=== PATIENT | female | born 1940 | race Caucasian/White ===

== ENCOUNTER 2022-12-08 10:15 | Day surgery (SDC) | payer MEDICARE ==
[~2022-12-08] VITALS: Ht 154.9 cm; Wt 59.0 kg
[~2022-12-08 10:15] MED LIST: CARI350 PO; EUTHYROX100 MC1 PO; MELO7.5 PO; METO25ER PO; RXSULTRIDS PO; XARELTO15 M1 PO
[2022-12-08 10:45] VITALS: BP 135/99
--- NOTE | 2022-12-08 11:22 | NUR ---
12/08/[address] notified pt is in afib HR 125. DR STEVE CANCELS THE PROCEDURE AND INSTRUCTS PT TO FOLLOW UP WITH CARDIOLOGY OR PRIMARY CARE PROVIDER AND THEN ONCE HR IS UNDER CONTROL PT IS TO RESCHEDULE WITH DR STEVE OFFICE.
== END 2022-12-08 11:20 | disposition home or self-care (01) ==
LOC: ORSCSDS 10:15
DX: G56.01 Carpal tunnel syndrome, right upper limb (principal); Z53.9 Procedure and treatment not carried out, unspecified reason
CPT/HCPCS: J7120

== ENCOUNTER 2024-04-28 17:27 | Emergency (ER) | payer MEDICARE ==
[~2024-04-28] VITALS: Ht 154.9 cm; Wt 56.7 kg
[2024-04-28] MEDS ORDERED: Lactated Ringer's 500 ML IV ONE (17:50)
[2024-04-28 18:08] LABS: BASOPHILS ABSOLUTE AUTO 0.05 K/mm3 (0.00-0.23); BASOPHILS PERCENT AUTO 1 % (0-2); EOSINOPHILS ABSOLUTE AUTO 0.13 K/mm3 (0.00-0.68); EOSINOPHILS PERCENT AUTO 1 % (0-6); Hematocrit 39.9 % (33.0-51.0); Hemoglobin 13.6 g/dL (11.5-16.0); IMMATURE GRAN ABSOLUTE AUTO 0.03 K/mm3 (0.00-0.10); IMMATURE GRAN PERCENT AUTO 0 % (0-1); LYMPHOCYTES ABSOLUTE AUTO 2.33 K/mm3 (0.84-5.20); LYMPHOCYTES PERCENT AUTO 23 % (21-46); MONOCYTES ABSOLUTE AUTO 0.52 K/mm3 (0.16-1.47); MONOCYTES PERCENT AUTO 5 % (4-13); Mean Corpuscular HGB 34.8 pg (26.0-34.0); Mean Corpuscular HGB Conc 34.1 g/dL (31.5-36.5); Mean Corpuscular Volume 102 fL (80-100); NEUTROPHILS ABSOLUTE AUTO 6.91 K/mm3 (1.96-9.15); NEUTROPHILS PERCENT AUTO 69 % (41-73); Platelet Count 169 K/mm3 (150-400); RDW Coefficient Variation 12.9 % (11.7-14.2); RDW Standard Deviation 48.8 fL (35.1-46.3); Red Blood Cell Count 3.91 M/mm3 (3.80-5.20); White Blood Cell Count 9.97 K/mm3 (4.00-11.30)
[2024-04-28 18:25] LABS: International Normalized Ratio 1.03
[2024-04-28 18:33] LABS: Albumin, Blood 3.1 g/dL (3.4-5.0); Bilirubin, Total 0.9 mg/dL (0.1-1.0); Bun/Creatinine Ratio 36.9 (12.0-20.0); Calcium, Blood 8.2 mg/dL (8.5-10.1); Creatinine, Blood 0.73 mg/dL (0.40-1.00); Globulin, Blood 3.1 g/dL (2.2-4.0); Total Protein, Blood 6.2 g/dL (6.4-8.2)
[2024-04-28] MEDS ORDERED: NS 1,000 ML IV SCH (21:05)
[2024-04-28 21:41] LABS: Hematocrit 33.6 % (33.0-51.0); Hemoglobin 11.7 g/dL (11.5-16.0)
[2024-04-28 22:00] VITALS: BP 134/85
== END 2024-04-28 23:23 | disposition home or self-care (01) ==
LOC: ER 17:27
PROVIDERS: Student in an Organized Health Care Education/Training Program
DX: R04.0 Epistaxis (principal); I48.91 Unspecified atrial fibrillation; Z88.8 Allergy status to other drugs, medicaments and biological substances; Z88.6 Allergy status to analgesic agent; Z88.0 Allergy status to penicillin; Z88.2 Allergy status to sulfonamides; Z79.899 Other long term (current) drug therapy; E03.9 Hypothyroidism, unspecified
CPT/HCPCS: 30903; 80053; 85014; 85018; 85025; 85610; 85730; 86850; 86900; 86901; 99284-25; J7030; J7120

== ENCOUNTER 2024-06-22 17:39 | Inpatient (IN) | payer MEDICARE ==
[~2024-06-22] VITALS: Ht 154.9 cm; Wt 59.3 kg
[2024-06-22] MEDS ORDERED: NS 1,000 ML IV SCH (18:10)
[2024-06-22 18:29] LABS: BASOPHILS ABSOLUTE AUTO 0.04 K/mm3 (0.00-0.23); BASOPHILS PERCENT AUTO 0 % (0-2); EOSINOPHILS ABSOLUTE AUTO 0.01 K/mm3 (0.00-0.68); EOSINOPHILS PERCENT AUTO 0 % (0-6); Hematocrit 40.5 % (33.0-51.0); Hemoglobin 13.4 g/dL (11.5-16.0); IMMATURE GRAN ABSOLUTE AUTO 0.09 K/mm3 (0.00-0.10); IMMATURE GRAN PERCENT AUTO 1 % (0-1); LYMPHOCYTES ABSOLUTE AUTO 1.03 K/mm3 (0.84-5.20); LYMPHOCYTES PERCENT AUTO 6 % (21-46); MONOCYTES ABSOLUTE AUTO 1.13 K/mm3 (0.16-1.47); MONOCYTES PERCENT AUTO 7 % (4-13); Mean Corpuscular HGB 31.9 pg (26.0-34.0); Mean Corpuscular HGB Conc 33.1 g/dL (31.5-36.5); Mean Corpuscular Volume 96 fL (80-100); Mean Platelet Volume 10.2 fL (9.1-12.4); NEUTROPHILS ABSOLUTE AUTO 14.43 K/mm3 (1.96-9.15); NEUTROPHILS PERCENT AUTO 86 % (41-73); Platelet Count 299 K/mm3 (150-400); RDW Coefficient Variation 13.9 % (11.7-14.2); RDW Standard Deviation 49.1 fL (35.1-46.3); White Blood Cell Count 16.73 K/mm3 (4.00-11.30)
[2024-06-22 18:46] LABS: Free Thyroxine 1.69 ng/dL (0.70-1.60); Magnesium, Blood 1.7 mg/dL (1.6-2.4)
[2024-06-22 18:49] LABS: Albumin/Globulin Ratio 0.6 (0.8-1.8); Bilirubin, Total 0.9 mg/dL (0.1-1.0); Bun/Creatinine Ratio 41.5 (12.0-20.0); Calcium, Blood 8.7 mg/dL (8.5-10.1); Creatinine, Blood 0.58 mg/dL (0.40-1.00); Globulin, Blood 4.8 g/dL (2.2-4.0); Potassium, Blood 3.8 mmol/L (3.5-5.5); Thyroid Stimulating Hormone 0.64 uIU/mL (0.360-4.800); Total Protein, Blood 7.8 g/dL (6.4-8.2)
[2024-06-22] MEDS ORDERED: Morphine Sulfate 4 MG/1 ML Injection IV ONE (19:25)
[2024-06-22] MEDS ORDERED: Metoprolol Tartrate 1 MG/ML 5 ML VIAL IV PRN (19:40)
[2024-06-22] MEDS ORDERED: Ondansetron HCl 2 MG / ML 2ML Vial IV ONE (19:40)
[2024-06-22] MEDS ORDERED: FLU VACC TS2024-25(6MOS UP)/PF 45 MCG/0.5 ML SYRINGE IM SCH (21:05)
[2024-06-22] MEDS ORDERED: Acetaminophen 325 MG TABLET PO PRN (21:50)
[2024-06-22] MEDS ORDERED: OxyCODONE HCL 5 MG TAB PO PRN (21:50)
[2024-06-22 22:17] LABS: Anti-Xa UFH, PHA Monitoring <0.10 IU/mL; International Normalized Ratio 1.11; Prothrombin Time Results 11.8 Sec (9.7-11.5)
[2024-06-22 22:52] LABS: Source, Urine Clean Catch
[2024-06-22 22:57] LABS: Appearance, Urine Hazy (Clear); Bilirubin, Urine Neg (Neg); Blood, Urine 5+ (Neg); Color, Urine Yellow (P-Yellow); Glucose Qualitative, Urine Neg (Neg); Ketones, Urine 3+ (Neg); Leukocyte Esterase, Urine 2+ (Neg); Nitrite, Urine Neg (Neg); Protein, Urine 4+ (Neg); Specific Gravity, Urine 1.025 (1.003-1.022); Urobilinogen, Urine NORM (Normal)
[2024-06-22 23:49] LABS: Amorphous Light (0-Heavy); Bacteria Many /hpf; Red Blood Cells, Urine 0-2 /hpf (0-2); Squamous Epithelial Cells Many /hpf (Few); Transitional Epithelial Cells Few /hpf (0-Rare); Yeast/Fungi Urine Few /hpf
[2024-06-23] VITALS (25 sets, daily range): BP systolic 84–155; BP diastolic 61–110
[2024-06-23] MEDS ORDERED: Heparin Sodium,Porcine/0.5 NS 500 ML IV SCH (00:20)
[2024-06-23] MEDS ORDERED: Diltiazem HCl 5 MG / ML 5ML Vial IV ONE (00:25)
[2024-06-23] MEDS ORDERED: Levothyroxine Sodium 0.088 MG Tab PO SCH (06:00)
[2024-06-23] MEDS ORDERED: CefTRIAXone Sodium 1,000 MG in NS 100 ML IV SCH (06:42)
[2024-06-23 07:09] LABS: BASOPHILS ABSOLUTE AUTO 0.05 K/mm3 (0.00-0.23); BASOPHILS PERCENT AUTO 0 % (0-2); EOSINOPHILS ABSOLUTE AUTO 0.04 K/mm3 (0.00-0.68); EOSINOPHILS PERCENT AUTO 0 % (0-6); Hematocrit 37.2 % (33.0-51.0); Hemoglobin 11.9 g/dL (11.5-16.0); IMMATURE GRAN ABSOLUTE AUTO 0.05 K/mm3 (0.00-0.10); IMMATURE GRAN PERCENT AUTO 0 % (0-1); LYMPHOCYTES ABSOLUTE AUTO 1.36 K/mm3 (0.84-5.20); LYMPHOCYTES PERCENT AUTO 9 % (21-46); MONOCYTES ABSOLUTE AUTO 1.25 K/mm3 (0.16-1.47); MONOCYTES PERCENT AUTO 9 % (4-13); Mean Corpuscular HGB 32.3 pg (26.0-34.0); NEUTROPHILS PERCENT AUTO 81 % (41-73); Platelet Count 275 K/mm3 (150-400); RDW Coefficient Variation 14.1 % (11.7-14.2); RDW Standard Deviation 52.8 fL (35.1-46.3); Red Blood Cell Count 3.68 M/mm3 (3.80-5.20); White Blood Cell Count 14.55 K/mm3 (4.00-11.30)
[2024-06-23 07:23] LABS: Mean Corpuscular Volume 101 fL (80-100)
[2024-06-23 07:30] LABS: Bun/Creatinine Ratio 33.7 (12.0-20.0); Calcium, Blood 7.9 mg/dL (8.5-10.1); Creatinine, Blood 0.65 mg/dL (0.40-1.00); Potassium, Blood 3.7 mmol/L (3.5-5.5)
[2024-06-23] MEDS ORDERED: Heparin Sodium 5000 Units/ML 1ML MDV IV ONE (07:55)
[2024-06-23] MEDS ORDERED: Metoprolol Tartrate 25 MG Tab PO SCH ×3 (09:00→21:00)
[2024-06-23] MEDS ORDERED: Lactated Ringer's 1,000 ML IV ONE (14:56)
[2024-06-23] MEDS ORDERED: Bupivacaine 0.5% HCl 5 MG/ML 30MLVIAL ONE (15:16)
--- NOTE | 2024-06-23 15:22 | NUR ---
PT ARRIVES TO PACU VIA BED FOR PREOP CARE AT 1515. ALERT & PLEASANT. DENIES PAIN/NAUSEA. AFEBRILE/AFIB PT BASELINE. LR AT TKO. SURGICAL PACK COMPLETE. SURGICAL HAT/PAS SLEEVE TO RLE/BP CUFF PLACED. WARM BLANKETS PLACED. RESTING QUIETLY. NO COMPLAINTS.
[2024-06-23] MEDS ORDERED: propofoL 20 ML IV ONE (15:38)
[2024-06-23] MEDS ORDERED: FentaNYL Citrate 50 MCG/ML 2 ML Injection ONE (15:39)
--- NOTE | 2024-06-23 16:22 | NUR ---
PT TO OR 3 VIA BED AT 1623 IN STABLE CONDITION.
[2024-06-23] MEDS ORDERED: CeFAZolin Sodium 1000 mg Vial ONE (16:34)
[2024-06-23] MEDS ORDERED: Ondansetron HCl 2 MG / ML 2ML Vial ONE (16:50)
[2024-06-23] MEDS ORDERED: EpiNEPhrine 1 MG/1 ML 1ML Vial ONE (16:50)
--- NOTE | 2024-06-23 17:18 | NUR ---
PT REMAINS IN OPERATING ROOM AT THIS TIME. PT WAS A/O x2-3 WHEN SHE LEFT FOR THE OR. SHE DENIES PAIN. VSS. HR 90-110s. SHE APPEAR MORE ORIENTED WHEN FMAILY ARRRIVED TO THE ROOM THIS AM. HEPARIN WAS STOPPED THIS AM PER DR BANKS'S ORDER. PT HAS BEEN REPOSITIONED T/O THE DAY.
[2024-06-23] MEDS ORDERED: Metoprolol Tartrate 5 ML IV ONE (17:53)
--- NOTE | 2024-06-23 18:47 | NUR ---
PT RETURNS FROM OR, SHE HAS A NAIL TO LEFT FEMUR. [address] PT DENIES PAIN TO LEFT FEMUR, REPORTS CHRONIC PAIN TO LOWER BACK BUT STATES THAT SHE DOES NOT REQUIRE ANYTHING FOR PAIN AT THIS TIME
[2024-06-24] VITALS (21 sets, daily range): BP systolic 85–178; BP diastolic 57–121
[2024-06-24] MEDS ORDERED: CeFAZolin Sodium 2,000 MG in NS 100 ML IV SCH
[2024-06-24 04:44] LABS: BASOPHILS ABSOLUTE AUTO 0.06 K/mm3 (0.00-0.23); BASOPHILS PERCENT AUTO 1 % (0-2); EOSINOPHILS PERCENT AUTO 1 % (0-6); Hematocrit 33.4 % (33.0-51.0); Hemoglobin 10.7 g/dL (11.5-16.0); IMMATURE GRAN ABSOLUTE AUTO 0.05 K/mm3 (0.00-0.10); IMMATURE GRAN PERCENT AUTO 0 % (0-1); LYMPHOCYTES ABSOLUTE AUTO 1.67 K/mm3 (0.84-5.20); LYMPHOCYTES PERCENT AUTO 14 % (21-46); MONOCYTES ABSOLUTE AUTO 1.12 K/mm3 (0.16-1.47); MONOCYTES PERCENT AUTO 10 % (4-13); Mean Corpuscular Volume 100 fL (80-100); Mean Platelet Volume 10.4 fL (9.1-12.4); NEUTROPHILS ABSOLUTE AUTO 8.77 K/mm3 (1.96-9.15); NEUTROPHILS PERCENT AUTO 75 % (41-73); Platelet Count 258 K/mm3 (150-400); RDW Coefficient Variation 14.2 % (11.7-14.2); RDW Standard Deviation 52.2 fL (35.1-46.3); Red Blood Cell Count 3.34 M/mm3 (3.80-5.20); White Blood Cell Count 11.77 K/mm3 (4.00-11.30)
[2024-06-24 05:12] LABS: Bun/Creatinine Ratio 33.1 (12.0-20.0); Calcium, Blood 8.1 mg/dL (8.5-10.1); Creatinine, Blood 0.7 mg/dL (0.40-1.00); Potassium, Blood 3.4 mmol/L (3.5-5.5)
--- NOTE | 2024-06-24 06:50 | NUR ---
SHIFT SUMMARY NEURO: PT A/OX4, FOLLOWS CONVERSATION EASILY. REPORTS NOT REMEMBERING THE PREVIOUS EVENING EVENTS. NO CONFUSION SEEN BY THIS RN OTHER THAN SOME FORGETFULNESS. SENSATION IN TACT IN ALL EXTREMETIES. CARDIAC: PT IN AFIB- BASELINE. POST OP VITALS COMPLETED. PULSES PRESENT. LUNGS: PT IS NOW ON RA. PT PULLED ONLY 500ML ON THE INCENTIVE SPIROMETER. PT AN EDUCATED ON USE AND FAMILY ENCOURAGED TO REMIND PATIENT WHEN AWAKE. SKIN: SURGICAL AQUACEL DRESSINGS IN PLACE, SCANT SHADOWING ON BOTTOM DRESSING. ICE PACKS APPLIED. POST OP CHG BATH COMPLETED.BRUISING AND MILD SWELLING STARTING.
[2024-06-24] MEDS ORDERED: Potassium Chloride 20 MEQ TabCR PO ONE (08:00)
[2024-06-24] MEDS ORDERED: Naloxone HCl 0.4MG / ML 1ML Vial ONE ×2 (10:20→10:27)
[2024-06-24] MEDS ORDERED: Lactated Ringer's 1,000 ML IV ONE (10:21)
[2024-06-24] MEDS ORDERED: Naloxone HCl 0.4MG / ML 1ML Vial IV ONE ×2 (10:30→10:35)
[2024-06-24] MEDS ORDERED: Lactated Ringer's 500 ML IV SCH (10:30)
--- NOTE | 2024-06-24 13:22 | NUR ---
AM NOTE: UPON SHIFT START PATIENT ALERT AND ORIENTED X3. POOR HISTORIAN AND CALLS HERSELF FORGETFUL. JOKING WITH STAFF AND TELLING ME DETAILS ABOUT HERSELF, CAT AND FAMILY. DENIES PAIN AT REST. STATES IF SHE DOES NOT MOVE SHE IS NOT IN ANY PAIN. DENIES NUMBNESS/TINGLING. PERRL WITH GLASSES AT BEDSIDE. PATIENT SAT UP IN BED FOR AM MED ADMINISTRATION AND MOVING ALL EXTREMITIES. SPEECH CLEAR. TELE SHOWING AFIB WITH HR 110-130'S. SBP 90-110'S UPON AM ASSESSMENT. DENIES CHEST PAIN/PRESSURE/PALPIATIONS. DISCUSSES HER PAST HISTORY WITH AFIB AND TALKS ABOUT HER HOME BLOOD THINNER WITH THIS RN. IV SALINE LOCKED UPON AM ASSESSMENT. NO EDEMA NOTED. PPP. BOWEL TONES PRESENT. PATIENT STATES SHE EATS VERY LITTLE AND DOES NOT FEEL HUNGRY AT THIS TIME. DIET ORDERS IN PLACE. TOOK AM MEDS WITH APPLEJUICE. PUREWICK IN PLACE DRAINING ARUNA URINE. ATTENDS IN PLACE. DENIES ABDOMINAL PAIN/NAUSEA. SKIN OVERALL PALE WITH SCATTERED BRUISING. LEFT FEMUR REPAIR 06/[address] ICE PACKS IN PLACE. CALL LIGHT IN REACH. DR. BANKS TO BEDSIDE AT 0945 THIS AM. THIS RN AT BEDSIDE FOR PROVIDER ROUNDING. PLAN FOR PHYSICAL THERAPY THIS AM.
--- NOTE | 2024-06-24 13:27 | NUR ---
1015 AM: PATIENT WORKING WITH PHYSICAL THERAPY AND UP TO EDGE OF BED, BECOMES UNRESPONSIVE AND THIS RN TO BEDSIDE AT 1015. PATIENT OPENING EYES WITH LEFT GAZE, PUPILS PINPOINT AND REACTIVE TO LIGHT. PATIENT NOT FOLLOWING COMMANDS, RIGHT FACIAL DROOP, SQUEEZING LEFT HAND MINIMALLY AND MOVING LEFT LOWER EXTREMITY. RIGHT UPPER AND LOWER EXTREMITY FLACCID. VITAL SIGNS STABLE AT TIME OF EVENT, SEE CHARTED VITALS. 2L NASAL CANNULA PLACED. DR. BANKS TO BEDSIDE. THIS RN, INVESTMENT ACCOUNTANT AT BEDSIDE. ORDERS FOR NARCAN. NARCAN ADMINISTERED X2 PER MD ORDERS, SEE EMAR FOR TIMING. LR STARTED AT 200 ML/HR. THIS RN AND SECOND RN TOOK PATIENT TO IMAGING FOR CT AND CTA WITH PORTAL MONITOR. FAMILY AT BEDSIDE DURING EVENT AND REMAINED AT BEDSIDE. DR. BANKS AND DR. STEVE BACK TO ROOM POST IMAGING TO DISCUSS RESULTS WITH FAMILY AND PATIENT. PATIENT MENTATION REMAINS UNCHANGED POST IMAGING. SEE ALL CHARTED VITALS. PLAN TO TRANSFER VIA HELICOPTER TO [facility]. REPORT CALLED TO ARTUR AT [facility] . [facility] ARRIVAL AT 1322 AND PATIENT LEFT AT 1338. REPORT GIVEN BY THIS RN TO [facility]W. FAMILY AT BEDSIDE FOR ENTIRE EVENT AND TRANSFER. DR. BANKS AND DR. STEVE TO BEDSIDE MULTIPLE TIME FOR UPDATES.
== END 2024-06-24 13:46 | disposition short-term general hospital (02) | DRG 480 ==
LOC: ER 17:39 → PCU 21:33 → ERHOLD 21:33 → PCU 23:47
PROVIDERS: Orthopaedic Surgery Sports Medicine; Student in an Organized Health Care Education/Training Program; ADMIT Student in an Organized Health Care Education/Training Program
PROC: 0QH734Z Insertion of Internal Fixation Device into Left Upper Femur, Percutaneous Approach (ICD-10-PCS; principal; 2024-06-23 15:45)
DX: S72.142A Displaced intertrochanteric fracture of left femur, initial encounter for closed fracture (principal); G92.8 Other toxic encephalopathy; I63.512 Cerebral infarction due to unspecified occlusion or stenosis of left middle cerebral artery; J18.9 Pneumonia, unspecified organism; I48.0 Paroxysmal atrial fibrillation; E03.9 Hypothyroidism, unspecified; W18.30XA Fall on same level, unspecified, initial encounter; M54.9 Dorsalgia, unspecified; G89.29 Other chronic pain; R29.725 NIHSS score 25; R29.810 Facial weakness; Z88.8 Allergy status to other drugs, medicaments and biological substances; Z88.0 Allergy status to penicillin; Z88.6 Allergy status to analgesic agent; Z88.2 Allergy status to sulfonamides; Z79.890 Hormone replacement therapy; Z79.01 Long term (current) use of anticoagulants; Z87.440 Personal history of urinary (tract) infections; Z90.710 Acquired absence of both cervix and uterus
CPT/HCPCS: 36415; 70450; 70496; 70498; 71045; 72170; 73502; 73552; 73562-LT; 80048; 80053; 81001; 82550; 82947; 83735; 84145; 84439; 84443; 84484; 85025; 85520; 85610; 85730; 87086; 93005; 93010; 93306; 96374; 96375; 97110; 97112; 97161; 99285-25; A9270; C1713; J0171; J0690; J0696; J1644; J2270; J2310; J2405; J2704; J3010; J7120; Q9967

== ENCOUNTER 2024-07-24 11:09 | Observation (INO) | payer MEDICARE ==
[~2024-07-24] VITALS: Ht 157.5 cm; Wt 51.9 kg
[~2024-07-24 11:09] MED LIST changes: -EUTHYROX100 MC1 PO; +EUTHYROX100 MC1 PT
[2024-07-24] MEDS ORDERED: ATOR40TA PT (13:08)
[2024-07-24] MEDS ORDERED: MELATONIN5 M1 PT (13:09)
[2024-07-24] MEDS ORDERED: ELIQUIS2.5 MG PT (13:09)
[2024-07-24] MEDS ORDERED: METOPROLOL TA37.5 M1 PT (13:10)
[2024-07-24] MEDS ORDERED: DOCUZEN 8.6-501 EACH PT (13:10)
[2024-07-24] MEDS ORDERED: MIRALAX17 GM PT (13:10)
[2024-07-24 16:06] LABS: BASOPHILS ABSOLUTE AUTO 0.05 K/mm3 (0.00-0.23); BASOPHILS PERCENT AUTO 1 % (0-2); EOSINOPHILS ABSOLUTE AUTO 0.45 K/mm3 (0.00-0.68); EOSINOPHILS PERCENT AUTO 4 % (0-6); Hematocrit 41.4 % (33.0-51.0); Hemoglobin 13.5 g/dL (11.5-16.0); IMMATURE GRAN ABSOLUTE AUTO 0.04 K/mm3 (0.00-0.10); IMMATURE GRAN PERCENT AUTO 0 % (0-1); LYMPHOCYTES ABSOLUTE AUTO 0.99 K/mm3 (0.84-5.20); LYMPHOCYTES PERCENT AUTO 9 % (21-46); MONOCYTES ABSOLUTE AUTO 0.65 K/mm3 (0.16-1.47); MONOCYTES PERCENT AUTO 6 % (4-13); Mean Corpuscular HGB 32.3 pg (26.0-34.0); Mean Corpuscular HGB Conc 32.6 g/dL (31.5-36.5); Mean Corpuscular Volume 99 fL (80-100); NEUTROPHILS ABSOLUTE AUTO 8.62 K/mm3 (1.96-9.15); NEUTROPHILS PERCENT AUTO 80 % (41-73); RDW Coefficient Variation 18.1 % (11.7-14.2); RDW Standard Deviation 66.2 fL (35.1-46.3); Red Blood Cell Count 4.18 M/mm3 (3.80-5.20)
[2024-07-24 16:20] LABS: Albumin, Blood 2.6 g/dL (3.4-5.0); Albumin/Globulin Ratio 0.6 (0.8-1.8); Bilirubin, Total 0.7 mg/dL (0.1-1.0); Bun/Creatinine Ratio 29.9 (12.0-20.0); Calcium, Blood 8.7 mg/dL (8.5-10.1); Creatinine, Blood 0.5 mg/dL (0.40-1.00); Globulin, Blood 4.7 g/dL (2.2-4.0); Potassium, Blood 4.9 mmol/L (3.5-5.5); Total Protein, Blood 7.3 g/dL (6.4-8.2)
[2024-07-24 16:26] LABS: Platelet Count 215 K/mm3 (150-400)
[2024-07-24] MEDS ORDERED: Lidocaine 2% Jelly Uro-Jet ONE (16:30)
[2024-07-24] MEDS ORDERED: FLU VACC TS2024-25(6MOS UP)/PF 45 MCG/0.5 ML SYRINGE IM SCH (16:55)
[2024-07-24] MEDS ORDERED: Bisacodyl 10 MG Supp PR PRN (16:55)
[2024-07-24] MEDS ORDERED: NS 1,000 ML IV SCH ×2 (16:55→17:00)
[2024-07-24 20:23] VITALS: BP 148/72
[2024-07-24] MEDS ORDERED: Melatonin 5 MG Tablet PO SCH (21:00)
[2024-07-24] MEDS ORDERED: Metoprolol Tartrate 25 MG Tab PO SCH (21:00)
[2024-07-25] MEDS ORDERED: KINDERMED160 MG/5 M PT (02:27)
[2024-07-25 03:17] VITALS: BP 143/85
[2024-07-25] MEDS ORDERED: Levothyroxine Sodium 0.1 MG Tab PO SCH (06:00)
[2024-07-25 06:05] LABS: BASOPHILS ABSOLUTE AUTO 0.04 K/mm3 (0.00-0.23); BASOPHILS PERCENT AUTO 0 % (0-2); EOSINOPHILS ABSOLUTE AUTO 0.52 K/mm3 (0.00-0.68); EOSINOPHILS PERCENT AUTO 5 % (0-6); Hematocrit 37.5 % (33.0-51.0); Hemoglobin 12.2 g/dL (11.5-16.0); IMMATURE GRAN ABSOLUTE AUTO 0.03 K/mm3 (0.00-0.10); IMMATURE GRAN PERCENT AUTO 0 % (0-1); LYMPHOCYTES ABSOLUTE AUTO 1.13 K/mm3 (0.84-5.20); LYMPHOCYTES PERCENT AUTO 11 % (21-46); MONOCYTES ABSOLUTE AUTO 0.88 K/mm3 (0.16-1.47); MONOCYTES PERCENT AUTO 9 % (4-13); Mean Corpuscular HGB 32.1 pg (26.0-34.0); Mean Corpuscular HGB Conc 32.5 g/dL (31.5-36.5); Mean Corpuscular Volume 99 fL (80-100); Mean Platelet Volume 9.6 fL (9.1-12.4); NEUTROPHILS PERCENT AUTO 74 % (41-73); Platelet Count 236 K/mm3 (150-400); RDW Standard Deviation 65.4 fL (35.1-46.3)
--- NOTE | 2024-07-25 06:05 | NUR ---
Shift Summary Pt admitted to this floor from ED because she lost her PEG tube. She is from a SNF and allegedly pulled it out. In the ED they could not replace it as the opening had already closed. Pt is awaiting procedure to place new PEG tube. She is AOx0 d/t a massive stroke she suffered on 06/23/24 per report. She sometimes responds to sounds or stimulus with brief eye opening. She moves her arms and legs around spontaniously. She is on tele running sinus tach. No s/s of pain or discomfort. She slept well t/o most of the night.
[2024-07-25 06:41] LABS: Albumin, Blood 2.5 g/dL (3.4-5.0); Albumin/Globulin Ratio 0.6 (0.8-1.8); Bilirubin, Total 0.6 mg/dL (0.1-1.0); Bun/Creatinine Ratio 24.3 (12.0-20.0); Calcium, Blood 8.4 mg/dL (8.5-10.1); Creatinine, Blood 0.53 mg/dL (0.40-1.00); Globulin, Blood 4.1 g/dL (2.2-4.0); Potassium, Blood 4.5 mmol/L (3.5-5.5); Total Protein, Blood 6.6 g/dL (6.4-8.2)
[2024-07-25 07:10] LABS: International Normalized Ratio 1.01; Prothrombin Time Results 10.8 Sec (9.7-11.5)
[2024-07-25] MEDS ORDERED: Metoprolol Tartrate 1 MG/ML 5 ML VIAL IV PRN (07:15)
[2024-07-25 07:24] VITALS: BP 144/94
[2024-07-25] MEDS ORDERED: Lidocaine 2% Jelly Uro-Jet ONE (08:45)
[2024-07-25] MEDS ORDERED: Atorvastatin 40 MG Tab PO SCH (09:00)
[2024-07-25] MEDS ORDERED: FentaNYL Citrate 50 MCG/ML 2 ML Injection ONE (09:30)
[2024-07-25] MEDS ORDERED: NS 500 ML IV ONE (09:30)
[2024-07-25] MEDS ORDERED: Midazolam HCl 1MG / ML 2ML Vial ONE (09:30)
--- NOTE | 2024-07-25 09:44 | NUR ---
CONTACTED HOSPITALIST REGARDING PATIENT RTHYMN 115/AFLUTTER.
--- NOTE | 2024-07-25 10:10 | NUR ---
CONTATED RESIDENT DR RANDLE REGARDING PATIENT AFLUTTER
[2024-07-25] MEDS ORDERED: Metoprolol Tartrate 25 MG Tab PO ONE (11:15)
--- NOTE | 2024-07-25 14:52 | NUR ---
DISCHARGE SUMMARY: PATIENT TO DISCHARGE BACK TO [facility] TO CONTINUE SNF CARE REPORT WAS GIVEN TO [facility] TALKED TO CHRISTINA MANAGER OF PROJECT MANAGEMENT. PATIENT TO BE TRANSPORTED BACK TO [facility] VIA STRECHTER. PATIENT G-TUBE IS PATENT WITH NO ISSUES NOTED. IV WAS DISCONTINUED AND PATIENT TELE DISCONTINUED. PATIENT FAMILY AT BEDSIDE UNTIL RIDE ARRIVAL.
== END 2024-07-25 15:44 ==
LOC: ER 11:09 → MEDS 11:10 → ERHOLD 11:10 → MEDS 19:37 → ENPENDDIS 07-25 12:51 → MEDS 07-25 15:03
PROVIDERS: Student in an Organized Health Care Education/Training Program; ADMIT Internal Medicine
DX: Z43.1 Encounter for attention to gastrostomy (principal); E03.9 Hypothyroidism, unspecified; I48.0 Paroxysmal atrial fibrillation; F03.90 Unspecified dementia, unspecified severity, without behavioral disturbance, psychotic disturbance, mood disturbance, and anxiety; Z66 Do not resuscitate; Z79.01 Long term (current) use of anticoagulants; Z79.899 Other long term (current) drug therapy; Z88.0 Allergy status to penicillin; Z88.2 Allergy status to sulfonamides; Z88.5 Allergy status to narcotic agent; Z88.8 Allergy status to other drugs, medicaments and biological substances
CPT/HCPCS: 36415; 49450; 74174; 80053; 85025; 85610; 85730; 99152; 99285-25; A9270; C1729; C1769; C1887; G0378; J2250; J3010; J7030; J7040; Q9967

== ENCOUNTER → 2024-09-18 | Outpatient (CLI) | payer MEDICARE ==
[~2024-09-18] MED LIST changes: +ATOR40TA PT; +DOCUZEN 8.6-501 EACH PT; +ELIQUIS2.5 MG PT; +KINDERMED160 MG/5 M PT; +MELATONIN5 M1 PT; +METOPROLOL TA37.5 M1 PT; +MIRALAX17 GM PT
[2024-09-18 20:27] LABS: Albumin, Blood 2.6 g/dL (3.4-5.0); Albumin/Globulin Ratio 0.6 (0.8-1.8); Bilirubin, Direct 0.1 mg/dL (0.0-0.3); Bilirubin, Indirect 0.2 mg/dL (0.1-0.7); Bilirubin, Total 0.3 mg/dL (0.1-1.0); Globulin, Blood 4.3 g/dL (2.2-4.0); Total Protein, Blood 6.9 g/dL (6.4-8.2)
== END ==
LOC: LAB SHORT 18:31 → LAB 18:31
PROVIDERS: Legal Medicine
DX: R94.5 Abnormal results of liver function studies (principal)
CPT/HCPCS: 80076

== ENCOUNTER → 2024-11-27 | Outpatient (CLI) | payer MEDICARE ==
[2024-11-27 18:49] LABS: Source, Urine Straight Cath
[2024-11-27 19:15] LABS: Appearance, Urine Hazy (Clear); Bilirubin, Urine Neg (Neg); Blood, Urine 5+ (Neg); Glucose Qualitative, Urine Neg (Neg); Ketones, Urine Neg (Neg); Leukocyte Esterase, Urine 2+ (Neg); Nitrite, Urine Neg (Neg); Protein, Urine 2+ (Neg); Urobilinogen, Urine 1+ (Normal)
[2024-11-27 19:23] LABS: Color, Urine Pale Yellow (P-Yellow)
[2024-11-27 19:24] LABS: Amorphous Light (0-Heavy); Bacteria Many /hpf; Red Blood Cells, Urine 25-50 /hpf (0-2); Squamous Epithelial Cells Few /hpf (Few)
== END ==
LOC: LAB SHORT 18:46 → LAB 18:46
PROVIDERS: Legal Medicine
DX: N39.0 Urinary tract infection, site not specified (principal)
CPT/HCPCS: 81001; 87077; 87086; 87186

== ENCOUNTER → 2024-12-11 | Outpatient (CLI) | payer MEDICARE ==
[2024-12-11 12:07] LABS: Source, Urine Foley catheter
[2024-12-11 13:16] LABS: Appearance, Urine Cloudy (Clear); Bilirubin, Urine Neg (Neg); Blood, Urine 5+ (Neg); Color, Urine Yellow (P-Yellow); Glucose Qualitative, Urine Neg (Neg); Ketones, Urine Neg (Neg); Leukocyte Esterase, Urine 3+ (Neg); Nitrite, Urine Pos (Neg); Protein, Urine 3+ (Neg); Specific Gravity, Urine 1.015 (1.003-1.022); Urobilinogen, Urine 1+ (Normal)
[2024-12-11 14:19] LABS: Bacteria Many /hpf; Squamous Epithelial Cells Rare /hpf (Few); White Blood Cells, Urine 50-100 /hpf (0-5)
[2024-12-11 14:20] LABS: Amorphous Light (0-Heavy); Mucus Light (0-Heavy)
[2024-12-11 14:21] LABS: Triple Phosphate Crystals Mod /hpf
== END ==
LOC: LAB SHORT 10:00 → LAB 10:00
PROVIDERS: Legal Medicine
DX: Z01.89 Encounter for other specified special examinations (principal); Z87.440 Personal history of urinary (tract) infections
CPT/HCPCS: 81001; 87077; 87086; 87186

== ENCOUNTER → 2024-12-25 | Outpatient (CLI) | payer MEDICARE ==
[2024-12-25 14:07] LABS: Source, Urine Voided
[2024-12-25 14:42] LABS: Appearance, Urine Hazy (Clear); Bilirubin, Urine Neg (Neg); Blood, Urine 5+ (Neg); Color, Urine Yellow (P-Yellow); Glucose Qualitative, Urine Neg (Neg); Ketones, Urine Neg (Neg); Leukocyte Esterase, Urine 3+ (Neg); Nitrite, Urine Neg (Neg); Protein, Urine 2+ (Neg); Specific Gravity, Urine 1.005 (1.003-1.022); Urobilinogen, Urine NORM (Normal)
[2024-12-25 15:03] LABS: Bacteria Many /hpf; Red Blood Cells, Urine 25-50 /hpf (0-2); Squamous Epithelial Cells Few /hpf (Few); White Blood Cells, Urine 25-50 /hpf (0-5)
== END ==
LOC: LAB SHORT 13:00 → LAB 13:00
PROVIDERS: Legal Medicine
DX: N39.0 Urinary tract infection, site not specified (principal)
CPT/HCPCS: 81001; 87077; 87086; 87186